=== PATIENT | female | born 1980 | race Caucasian/White ===

== ENCOUNTER 2025-07-14 11:53 | Outpatient (CLI) | payer OTHER, SELFPAY ==
--- NOTE | ~2025-07-14 | US_ITS ---
EXAMINATION: US pelvic complete, 07/14/2025 11:58 CDT HISTORY: Excessive and frequent menstruation with regular c Comparison: None Technique: Mitchell-scale and color Doppler images were obtained. Findings: Uterus: Uterus anteverted 8 9 x 5.5 x 6.7 cm, probable uterine fibroid left posterior uterine body 1.9 x 2.5 cm. . Endometrium 9 mm. Right Ovary:Right ovary 2.0 x 2.2 x 3.1 cm, no adnexal mass, normal flow. Left Ovary: Left ovary 2.3 x 1.4 x 3.6 cm, no adnexal mass, normal flow. Free Fluid: None Impression: 1. Probable uterine fibroid detailed above which appears partially submucosal. MRI suggested to further evaluate Reviewed, dictated and finalized at location P. Impression: 1. Probable uterine fibroid detailed above which appears partially submucosal. MRI suggested to further evaluate
== END 2025-07-14 11:54 | disposition home or self-care (01) ==
DX: N92.0 Excessive and frequent menstruation with regular cycle (principal)
CPT/HCPCS: 76856

== ENCOUNTER 2025-08-03 00:25 | Day surgery (SDC) | payer OTHER, SELFPAY ==
[2025-07-27 15:39] VITALS: BMI 31.0
--- NOTE | 2025-07-28 12:07 | SUR.PREOP ---
[facility] has started construction of its new state of the art ER which will open Spring 2026. With this, we anticipate parking may be a challenge for some our surgical patients and families. Parking spaces are limited but are available for all Surgical, obstetrics, and ER patients sharing this lot. If you arrive and find you are having a hard time finding a parking space, please note that we understand the challenges, please drive around the hospital and park near Hospital Entrance 1. When you enter this entrance, you can ask a volunteer to direct or take you back to the surgical waiting area to check in. We appreciate everyone?s understanding of these expected challenges while we build for your future. Report to the Outpatient Waiting Room, entrance under the green pavilion located off [address], at time _0745_ on date _08/03/25__. Planned Procedure Time: _0945_.? Time changes happen often and if your time is changed the preop area will call you the afternoon before. - You and your visitor will be asked to self-screen and do not enter if you have any COVID symptoms. Please call surgeon if you need to reschedule. - A mask is optional within the hospital at this time. Patients may have clear liquids (water, carbonated beverages, clear teas, apple juice) until 3 hours prior to surgery with a maximum of 20 ounces. - No food from midnight until time of surgery and no smoking, or chewing tobacco (or any form of nicotine). No chewing gum, candy or mints. Take only the following medications with a SIP of water on the morning of surgery: __None____ DO NOT STOP ANY OF YOUR OTHER PRESCRIPTION MEDICATIONS PRIOR TO SURGERY EXCEPT THE FOLLOWING Hold all vitamins and supplements for 3 days per anesthesiologist. Medications to hold prior to surgery per physician __tirzepatide 5mg for 10 days prior____ Date to take last dose of vitamins__07/30/25____ Please no make-up, nail tur[place] ca[place] islander, hairspray, perfume, deodorant, or body powder the day of surgery.? No jewelry (including any body piercings) or valuables the day of surgery, leave them at home.? Please take a shower or bath the night before, or the morning of, surgery with an antibacterial soap.? Wear comfortable, loose fitting clothing.? Children are encouraged to wear pajamas. - Jewelry must be removed prior to entering the operating room.? Rings and piercings that are not removed may be cut off. - The hospital will not accept responsibility for valuables.? - Please leave all valuables, including medications, at home the day of surgery. If you are going home after surgery, a licensed water tanker driver must drive you home.? - NO public transportation without another adult if you receive anesthesia. - We recommend that an adult stay with you for 24 hours following discharge. - We also recommend that you do not drive, make important decision, drink alcoholic beverages, or take any drugs that were not prescribed by your health care provider for at least 24 hours after your discharge time. For Pediatric surgeries, we recommend two adults accompany the child home. Follow any additional instructions given to you from your surgeon. Telephone instructions given to ___Amanda__and asked if any additional questions and then verbalized understanding. Patient advised to call surgeon office or pre surgery nurse liaison [phone] if any additional questions.
--- OUTSIDE RECORDS SUMMARY | 2025-08-03 00:27 | XMS_ITS | Clinical Summary ---
Author Organization [facility] [address] Address [address] [place] [address] Phone Care Team Providers Care Supply Chain Development Manager Name Role Phone Adrien Matthew MD Primary Care Provider [phone] Allergies Active Allergy Reactions Criticality Noted Date Comments Sulfa (Sulfonamide Antibiotics) Itching Low 03/02 Medications ALPRAZolam (XANAX) 0.5 mg tablet Take 1 tablet (0.5 mg total) by mouth nightly as needed for anxiety Active phentermine (ADIPEX-P) 37.5 mg tablet Take 1 tablet (37.5 mg total) by mouth daily 12/06/2021 Active naproxen (NAPROSYN) 500 mg tabletIndicatio ns:Menorrhagia with regular cycle Take 1 tablet (500 mg total) by mouth 2 (two) times a day as needed for pain (pain) Take with food. 60 tablet 01/11/2022 Active valACYclovir (VALTREX) 1 gram tablet Take 1 tablet (1,000 mg total) by mouth daily 12/08/2022 Active Active Problems Problem Noted Date Diagnosed Date History of female sterilization 01/28/2023 Fracture of cervical vertebra 06/29/2014 Surgical History Surgery Date Site/Laterality Comments SECTION 2002, 2006 TUBAL LIGATION 2006 Medical History Medical History Date Comments Hx Other Medical 2012 Abnormal pap sm ear Hx Other Medical c sections; Com ments: JOSE EP 07/29/2014 - Family History Relation Name Status Comments Father Alive Mother Alive Social History Tobacco Use Types Packs/Day Years Used Date Smoking Tobacco: Never Smokeless Tobacco: Never Alcohol Use Standard Drinks/Week Comments Yes 0 (1 standard drink = 0.6 oz pur e alcohol) monthly Exercise Vital Sign Answer Date Recorde d On average, how many days pe r week do you engage in moderate to strenuous exercise (like a brisk walk)? 2 days 09/01/2020 On average, how many minutes do you engage in exercise at this level? 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 Not on file Not on file Not on file Obstetrics History Para Term AB IAB SAB Ectopic Multiple Livin g Live Births 2 2 2 2 2 Date Outcome GA Total Labor Labor/2nd/3rd Weight Sex Type Anes PTL Lani A1 A5 Name Clin 2002 Term 42w 0d 3.629 kg (8 lb) F CS-LT ranv Living Complications:None 2005 Term 40w 0d 3.629 kg (8 lb) F CS-LT ranv Living Complications:None Comments FTP with first, elective rep eat with 2nd Last Filed Vital Signs Vital Sign Reading Time Taken Comments Blood Pressure 111/70 01/11/2022 1:44 PM CDT Pulse 60 06/24/2014 4:25 PM CDT Temperature - - Respiratory Rate - - Oxygen Saturation 92% 06/24/2014 4:25 PM CDT Inhaled Oxygen Concentration - - Weight 72.6 kg (160 lb) 01/26/2023 12:44 PM CDT Height 167.6 cm (5' 6) 01/26/2023 12:44 PM CDT Body Mass Index 25.82 01/26/2023 12:44 PM CDT Plan of Treatment Health Maintenance Due Date Last Done Comments Breast Cancer Screening-Mammogram 1980 Depression Screening 1980 Hepatitis C Screening 1980 Varicella Vaccines (1 of 2 - 13+ 2-dose series) 1993 Hepatitis B Screening 1998 HPV Vaccines (1 - 3-dose SCD M series) 12/30/2007 Cervical Cancer Screening 01/11/2023 01/11/2022 Regular Well Visit/Exam 18-64 01/11/2023 04 /, 09/01/2020 DTaP/Tdap/Td Vaccine (2 - Td or Tdap) 06/23/2024 06/23/2014 Covid-19 Vaccine (3 - 2024-2 6 season) 2025 10/11/2021, 2020 Influenza Vaccine (#1) 2025 Pneumococcal vaccine <65 Aged Out No longer eligible based on patient's age to complete this topic Procedures Procedure Name Priority Date/Time Associated Diagnosis Comments PAP AND HIGH RISK HPV, REFLEX TO GENOTYPING Routine 01/11/2022 9:24 AM CDT Well woman exam with routine gynecological exam from Last 3 Months or Most Recently Relevant to Health Maintenance Results * Pap and High Risk HPV, reflex to Genotyping (01/11/2022 9:24 AM CDT) Thin prep (Pap test) 01/11/2022 9:24 AM CDT 01/13/2022 9:24 AM CDT Narrative PATHOLOGY [facility] - 01/16/2022 4:45 PM CDT [facility] Department of Pathology [address] [place] [id number] Final Report with Addendum Note to Patients: This report may contain a detailed description of human tissue sent by a health care provider to the laboratory for pathologic evaluation. The content of this report is essential for diagnosis and may provide important critical findings. This information may be unfamiliar to patients to review without a medical professional present. It is advised that the patient review this report in the presence of a health care provider who can answer questions and explain the details. Patient Name: CATALINA JAMISON Address: [place] [address] Gender: F : 1980 (Age: 41) Service: Laboratory Location: [facility] #: [id number] Patient Type: [facility] SPECIMEN Taken: 01/11/2022 Received: 01/13/2022 Accessioned:: 01/16/2022 Reported: 01/16/2022 Physician(s): Ivis Dumont M.D. [facility] Diagnosis: Source of Specimen: SCREENING THIN PREP IMAGED PAP w/ HPV Specimen Adequacy: - Specimen satisfactory for interpretation; endocervical/transformation zone component absent or insufficient General Category: - Negative for intraepithelial lesion or malignancy JONI Cabrera(ASCP) JONI Monteiro(ASCP) Report Electronically Reviewed and Signed Out By JONI Monteiro(ASCP) 01/16/2022 16:45:49 Addenda: HPV Test Interpretation NEGATIVE for types 16, 18, 31, 33, 35, 39, 45, 51, 52, 56, 58, 59, 66 and 68. Test performed utilizing Gen-Probe Aptima assay. Report Electronically Reviewed and Signed Out By JONI Cabrera(ASCP) 01/16/2022 12:25:16 Specimen(s) Received: A: SCREENING THIN PREP IMAGED PAP w/ HPV Clinical History: Last Menstrual Period: 12/23/2021 The Pap test is a screening test used to aid in the detection of cervical cancer and its precursors. It should not be the sole means by which malignant and premalignant lesions are diagnosed. Both false negative and false positive results may occur. It also has poor sensitivity for the detection of endometrial lesions and should not be used to evaluate suspected endometrial abnormalities. For these reasons it is most important to obtain Pap tests at regular intervals. The performance characteristics of some immunohistochemical stains, fluorescence in-situ hybridization tests and immunophenotyping by flow cytometry cited in this report (if any) were determined by the Surgical Pathology Department at [facility] as part of an ongoing quality assurance coordinator program and in compliance with federally mandated regulations drawn from the Clinical Laboratory Improvement Act of 1988 (CLIA '88). Some of these tests rely on the use of analyte specific reagents and are subject to specific labeling requirements by the US Food and Drug Administration. Such diagnostic tests may only be performed in a facility that is certified by the Department of Health and Human Services as a high complexity laboratory under CLIA '88. The FDA has determined that such clearance or approval is not necessary. This test is used for clinical purposes. It should not be regarded as investigational or for research. Nevertheless, federal rules concerning the medical use of analyte specific reagents require that the following disclaimer be attached to the report: This test was developed and its performance characteristics determined by the Surgical Pathology Department [facility]. It has not been cleared or approved by the U. S. Food and Drug Administration. Ivis Dumont MD LAB CYTOLOGY ORDERABLES Final Re sult PATHOLOGY [facility] [address] [place], [place] [phone] from Last 3 Months or Most Recently Relevant to Health Maintenance Insurance [facility] CHOICE PLUS [facility] [employer] PLUS [employer] Care Teams Supply Chain Development Manager Relationship Specialty Start Date End Date Adrien Matthew MD [address] [place] [address] PCP - General 07/29/14
--- OUTSIDE RECORDS SUMMARY | 2025-08-03 00:27 | XMS_ITS | Clinical Summary ---
Author Organization [facility] Address [address], [facility] [address] [place] [address] Phone Care Team Providers Care Control Panel Tester Name Role Phone Adrien Matthew MD Primary Care Provider [phone] Medications ALPRAZolam (XANAX) 1 MG Tablet TK 1 T PO QID PRA 08/29/2019 Active Diethylpropion HCl 25 MG Tablet 0 07/09/2019 Ac tive Topiramate 50 MG Tablet 08/07/2019 Active Phentermine HCl 37.5 MG Tablet 0 08/12/2019 Acti ve neomycin-polymyx in-hydrocortison e (CORTISPORIN) [id number] Solution 09/09/2019 Active Family History Medical History Relation Name Comments No Known Problems Father No Known Problems Mother Relation Name Status Comments Father Alive Mother Alive Social History Tobacco Use Types Packs/Day Years Used Date Smoking Tobacco: Passive Smo ke Exposure - Never Smoker Smokeless Tobacco: Never Alcohol Use Standard Drinks/Week Comments Yes 0 (1 standard drink = 0.6 oz pur e alcohol) ocassional Sexually Active Control Partners Comments Yes Comments No Sex and Gender Information Value Date Recorded Sex Assigned at Not on file Legal Sex Female 7:57 PM CDT Gender Identity Not on file Sexual Orientation Not on file Last Filed Vital Signs Vital Sign Reading Time Taken Comments Blood Pressure 110/60 09/17/2019 3:21 PM BATT MACHINE OPERATOR Pulse 91 09/17/2019 3:21 PM BATT MACHINE OPERATOR Temperature 36.8 C (98.2 F) 09/17/2019 3:21 PM BATT MACHINE OPERATOR Respiratory Rate 18 09/17/2019 3:21 PM BATT MACHINE OPERATOR Oxygen Saturation 100% 09/17/2019 3:21 PM BATT MACHINE OPERATOR Inhaled Oxygen Concentration - - Weight 65 kg (143 lb 6.4 oz) 09/17/2019 3:21 PM BATT MACHINE OPERATOR Height 167.6 cm (5' 6) 09/17/2019 3:21 PM BATT MACHINE OPERATOR Body Mass Index 23.15 09/17/2019 3:21 PM BATT MACHINE OPERATOR Plan of Treatment Health Maintenance Due Date Last Done Comments Hepatitis C Virus (HCV) Screening 1980 Hepatitis B Immunization (1 of 3 - 19+ 3-dose series) 12/30/1999 Pap Smear 2001 Human Papillomavirus (HPV) Immunization (1 - 3-dose SCDM series) 12/30/2007 Cervical Cancer Screening (CCS) 2010 HPV/Cotest 2010 Influenza Immunization (#1) 2025 SARS-COV-2 Immunization ( season) 2025 10/11/2021, 2020 Respiratory Syncytial Virus (RSV) Immunization (Adult) (1 - 1-dose 75+ series) 12/30/2055 DTaP/Tdap/Td Immunization Discontinued 06/23/2014 TdaP Immunization Completed 06/23/2014 Meningococcal Immunization (ACWY) Aged Out No longer eligible based on patient's age to complete this topic Pneumococcal Immunization Combined Aged Out No longer eligible based on patient's age to complete this topic Rotavirus Immunization Aged Out No lo nger eligible based on patient's age to complete this topic Care Teams Control Panel Tester Relationship Specialty Start Date End Date Adrien Matthew MD [address] [place] [id number] PCP - General Cardiovascular Disease - Cardiology 09/17/19
--- NOTE | 2025-08-03 07:31 | WPDHPUPDATE1 ---
History and Physical Update Update Date/Time: 08/03/25 07:31 History and Physical has been reviewed, including an updated exam of the patient. There are NO changes in the patient's condition. Risks, benefits, and alternatives have been discussed and questions answered. Patient agrees to proceed with procedure.
--- NOTE | 2025-08-03 07:31 | PM.HPGS ---
History of Present Illness History of Present Illness Consent: Risks, benefits, and alternatives have been discussed and questions answered. Patient agrees to proceed with procedure. Chief complaint: Menorrhagia Narrative: Alejandra Jamison is a 44 year old female with menorrhagia. Pelvic ultrasound shows fibroids. It was recommended to undergo D&C hysteroscopy for further evaluation. Risks of infection, bleeding, perforation, and possible pathology are reviewed. Patient voices understanding and agrees to proceed Review of Systems Review of Systems: not repeated day of surgery; patient states no changes in status [facility] Surgical History Surgical History (Updated 08/03/25 @ 07:32 by Petra Arias MD) History of bilateral tubal ligation With 2005 History of X2 Social History Social History Smoking status: Never smoker Alcohol intake: current Alcohol use details: 4/month Living arrangements: with family Spiritual care concerns: No Meds Home Medications and Allergies Home Medications ?Medication ?Instructions ?Recorded ?Confirmed ?Type vit no.95-ferrous 1 tablet PO DAILY 07/27/25 07/27/25 History fumarate 28 mg-folic acid 800 mcg tablet () tirzepatide 5 mg/0.5 mL 5 mg subcut WEEKLY 07/27/25 07/27/25 History subcutaneous pen injector (Mounjaro) zinc 50 mg capsule 50 mg PO DAILY 07/27/25 07/27/25 History Allergies Allergy/AdvReac Type Severity Reaction Status Date / Time Sulfa (Sulfonamide Allergy Intermediate Itching Verified 07/27/25 15:27 Antibiotics) Exam Const: General: healthy appearing and alert Orientation/consciousness: patient oriented x3 Resp: Effort & Inspection: normal respiratory effort Auscultation: clear to auscultation bilaterally Cardio: Rate: regular rate Rhythm: regular rhythm GI: GI Palp: Yes Soft to palpation, No Tenderness to palpation present (GI) and No Palpable mass present : External Female Exam: normal external appearance Speculum Exam - Vagina: normal appearance of the vagina and normal vaginal discharge Speculum Exam - Cervix: normal appearance of the cervix Bimanual exam- vagina & uterus: uterine size normal and consistency normal Bimanual Exam- Adnexa, other: normal adnexae and No adnexal tenderness Neuro: General: patient oriented x3 Assessment and Plan Assessment and plan (1) Menorrhagia: Code(s): N92.0 - Excessive and frequent menstruation with regular cycle Status: Acute Assessment and Plan: Plan to proceed with D&C hysteroscopy
[2025-08-03 08:00] VITALS: BP 133/53; PULSE 62; RESP 16; TEMP 36.6; O2SAT 100
[2025-08-03] MEDS: ACETAMINOPHEN 500 MG TABLET 1000 MG PO (08:29)
[2025-08-03] MEDS: LACTATED RINGERS 1,000 ML 30 ML IV CONT (08:35)
[2025-08-03 08:47] LABS: BEDSIDEPREGUCG Negative (Negative)
--- NOTE | 2025-08-03 09:01 | WPDANESEPPF ---
Anes - Initial Pre Proc Eval Procedure: Operation Date: 08/03/25 09:45 Proposed Procedures p Hysteroscopy Dilation and Curettage - Petra Arias MD Date/Time: 08/03/25 09:01 Surgeon: Petra Arias MD Pre Op Diagnosis: Menorrhagia Patient Data Age: 44 Gender: F Height: 1.68 m Weight: 89 kg Last Vital Signs Temp 36.6 C 08/03/25 08:00 Pulse 62 08/03/25 08:00 Resp 16 08/03/25 08:00 BP 133/53 L 08/03/25 08:00 Pulse Ox 100 08/03/25 08:00 O2 Del Method Room Air 08/03/25 08:00 Allergies Allergy/AdvReac Type Severity Reaction Status Date / Time Sulfa (Sulfonamide Allergy Intermediate Itching Verified 08/03/25 08:24 Antibiotics) Home Medications ?Medication ?Instructions ?Recorded ?Confirmed ?Type vit no.95-ferrous 1 tablet PO DAILY 07/27/25 08/03/25 History fumarate 28 mg-folic acid 800 mcg tablet () tirzepatide 5 mg/0.5 mL 5 mg subcut WEEKLY 07/27/25 08/03/25 History subcutaneous pen injector (Mounjaro) zinc 50 mg capsule 50 mg PO DAILY 07/27/25 07/27/25 History Laboratory Tests 08/03/25 08:00 POC Urine HCG, Qual Negative (Negative) Patient hx anesthesia problems: none Family hx anesthesia problems: none Results Review: All pre-operative results and documents have been reviewed as part of the pre-operative evaluation. [facility] Surgical History Surgical History History of bilateral tubal ligation With 2006 History of X2 Social History Social History Smoking status: Never smoker Alcohol intake: current Alcohol use details: 4/month Living arrangements: with family Spiritual care concerns: No Anes - Eval Final PreProcedure Day of Procedure 08/03/25 09:01 Patient weight: overweight Heart: regular rate and rhythm Lungs: clear to auscultation Airway: Mallampati scale class II Neurological: alert and oriented Last oral intake: >/= 8 hours ASA classification: II Emergent: no Anesthetic plan: proceed Anesthesia type and monitoring: general GIVS and standard monitoring Results Review: All pre-operative results and documents have been reviewed as part of the pre-operative evaluation. Informed Consent: The patient's anesthetic plan and its attendant risks and benefits were discussed with the patient/family/POA. Questions were solicited and answers provided to the satisfaction of the patient/family/POA.
--- NOTE | 2025-08-03 09:49 | S_PTH ---
PATIENT: Alejandra Jamison LOC: [facility] U#:[id number] AGE/SX: 44/F ROOM: RE08/03/[address]: Petra Arias MD : 1980 BED: DIS: 08/03/2025 SPEC #: [id number] RECD: 08/03/25 11:03 STATUS: ADIAN REQ #: [id number] CAITLIN: 08/03/25 09:[address]: Petra Arias DEPT: [facility] Surgical RECD BY: Caro Gomez Tissues: A - Endometrial Curettings Procedures: Hematoxylin and Eosin Stain Gross and Microscopic Level 4
[2025-08-03] MEDS: KETOROLAC 15 MG/ML VIAL (*BKC) IV PUSH (09:50)
--- NOTE | 2025-08-03 09:50 | SUR.OPER ---
fluid deficit 30
--- NOTE | 2025-08-03 09:54 | P.OP_ITS ---
Procedure Note - Detailed Date of Procedure 08/03/25 Pre-op Diagnosis Menorrhagia Post-op Diagnosis Same Procedure Performed D&C hysteroscopy Surgeon Petra Arias MD Anesthesia MAC Findings Uterus sounds to 11cm and appears grossly normal Description of Procedure The patient was taken to the operating room and placed under anesthesia in the dorsal lithotomy position. She was prepped and draped usual sterile fashion. Diana speculum was placed in the vagina and the cervix grasped on the anterior lip with a tenaculum. The uterus is sounded to 11cm. The diagnostic hysteroscope was placed and with no abnormalities noted it is removed. The sharp curette was used to curette the endometrium until a good uterine cry was noted in all areas. All instruments are removed. Sponge, needle, and instrument counts are correct per the OR staff. The patient was taken to recovery in stable condition. Estimated Blood Loss 5 Drains No Packing No Pathology Yes (endometrial curettings) Complications No immediate complications Condition Stable Disposition PACU
[2025-08-03 09:56] VITALS: BP 87/43; PULSE 78; RESP 14; O2SAT 100
[2025-08-03 10:25] VITALS: BP 95/52; PULSE 60; RESP 16
== END 2025-08-03 10:46 | disposition home or self-care (01) ==
PROVIDERS: Visit Provider Obstetrics & Gynecology Gynecology
PROC: 0U5B8ZZ Destruction of Endometrium, Via Natural or Artificial Opening Endoscopic (ICD-10-PCS; CPT 58563; principal; 2025-08-03 09:45)
DX: N92.0 Excessive and frequent menstruation with regular cycle (principal)
CPT/HCPCS: 58558; 88305; A9270; J1885; J2003; J2250; J2704; J3010; J7120